=== PATIENT | male | born 2000 | race Caucasian/White ===

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

== ENCOUNTER 2022-01-24 17:05 | Emergency (ER) | payer OTHER ==
[~2022-01-24] VITALS: Ht 175.3 cm; Wt 82.0 kg
[2022-01-24 17:17] VITALS: BP 135/81
[2022-01-24] MEDS ORDERED: IBUP-2028 MT (17:59)
[2022-01-24] MEDS ORDERED: MUPI15CR11 TP (17:59)
[2022-01-24] MEDS ORDERED: DIPH25CA83 MT (17:59)
== END 2022-01-24 18:41 | disposition home or self-care (01) ==
LOC: ER 17:05
DX: S00.86XA Insect bite (nonvenomous) of other part of head, initial encounter (principal); W57.XXXA Bitten or stung by nonvenomous insect and other nonvenomous arthropods, initial encounter; Y93.89 Activity, other specified; Y92.018 Other place in single-family (private) house as the place of occurrence of the external cause
CPT/HCPCS: 99283